=== PATIENT | female | born 1950 | race Caucasian/White ===

== ENCOUNTER 2017-12-31 09:36 | Day surgery (SDC) | payer MEDICARE, OTHER ==
[~2017-12-31 09:36] MED LIST: Lactated Ringers 1,000 ML IV SCH; Lidocaine 1%/Sod Bicarbonate in NS 8.4% 1 ML Syringe IDERM PRN; Sodium Chloride 0.9% 10 ML Syringe FLUSH PRN
--- NOTE | 2017-12-31 10:13 | PCM.PREANE ---
Preanesthetic Assessment - Procedure Proposed Procedure: Screening colonoscopy - Anesthesia/Transfusion/Family Hx Anesthesia History: Prior Anesthesia Without Reaction Family History of Anesthesia Reaction: No Transfusion History: Prior Transfusion Without Reaction (x2 with a c section) - Review of Systems General: No Symptoms Pulmonary: No Symptoms Cardiovascular: Other (cardiomyopathy, iliac stents, HTN, hx of palpitations, hyperlipidemia, PVD) Gastrointestinal: Other (Occ GERD ) Neurological: No Symptoms Other: Reports: None - Physical Assessment NPO Status Date: 12/31/17 NPO Status Time: 23:30 Pulse: 82 O2 Sat by Pulse Oximetry: 100 Respiratory Rate: 16 Blood Pressure: 171/54 Temperature: 36.8 C Height: 1.47 m Weight: 54.885 kg ASA Class: 2 Mental Status: Alert & Oriented x3 Airway Class: Mallampati = 3 Dentition: Reports: Normal Dentition (patient has prominent incisors and small mouth opening ) Thyro-Mental Finger Breadths: 3 Mouth Opening Finger Breadths: 2 ROM/Head Extension: Full Lungs: Clear to Auscultation, Normal Respiratory Effort Cardiovascular: Regular Rate, Regular Rhythm - Allergies Allergies/Adverse Reactions: Allergies Allergy/AdvReac Type Severity Reaction Status Date / Time No Known Allergies Allergy Verified 12/31/17 10:04 - Blood Blood Available: No Product(s) Available: None - Anesthesia Plan Pre-Op Medication Ordered: None - Acknowledgements Anesthesia Type Planned: MAC Pt an Appropriate Candidate for the Planned Anesthesia: Yes Alternatives and Risks of Anesthesia Discussed w Pt/Guardian: Yes Pt/Guardian Understands and Agrees with Anesthesia Plan: Yes PreAnesthesia Questionnaire - HOME MEDS Home Medications: Home Meds Aspirin [Adult Low Dose Aspirin EC] 81 mg PO DAILY 12/31/17 [History] Carvedilol [Coreg] 6.25 mg PO DAILY 12/31/17 [History] Losartan [Cozaar] 25 mg PO DAILY 12/31/17 [History] atorvaSTATin Calcium [Lipitor] 40 mg PO DAILY 12/31/17 [History] - CURRENT (IN HOUSE) MEDS Current Meds: Current Medications Lactated Ringer's (Ringers, Lactated) 1,000 mls @ 125 mls/hr IV ASDIRECTED MARIAM Stop: 12/31/17 23:00 Lidocaine/Sodium Bicarbonate (Buffered Lidocaine 1% In Ns 8.4%) 0.25 ml IDERM ONETIME PRN PRN Reason: Prior to IV Start Stop: 12/31/17 18:00 Sodium Chloride (Saline Flush) 10 ml FLUSH ASDIRECTED PRN PRN Reason: Keep Vein Open Stop: 12/31/17 18:00
[2017-12-31] MEDS ORDERED: Propofol 200 MG/20 ML SDV ONE ×2 (10:31→10:47)
[2017-12-31] MEDS ORDERED: Lidocaine 1% 2 ML ONE ×2 (10:32)
--- NOTE | 2017-12-31 11:12 | PCM48HPAN ---
Post Anesthesia Note - EVALUATION WITHIN 48HRS OF ANESTHETIC Vital Signs in Normal Range: Yes Patient Participated in Evaluation: Yes Respiratory Function Stable: Yes Airway Patent: Yes Cardiovascular Function Stable: Yes Hydration Status Stable: Yes Pain Control Satisfactory: Yes Nausea and Vomiting Control Satisfactory: Yes Mental Status Recovered: Yes Pulse Rate: 77 SaO2: 99 Resp Rate: 16 Temperature: 98.2 C Blood Pressure: 110/59
--- NOTE | 2018-01-01 07:28 | OR ---
DATE OF OPERATION: 12/31/2017 SURGEON: Enmanuel Gonzalez MD PREOPERATIVE DIAGNOSIS: 1. Screening colonoscopy. 2. Family history of colon cancer. POSTOPERATIVE DIAGNOSIS: 1. Screening colonoscopy. 2. Family history of colon cancer. OPERATION PERFORMED: Colonoscopy to cecum. ANESTHESIA: Done under IV sedation. FINDINGS: Normal study. There was some spasm in the sigmoid colon, which made the colonoscopy difficult. DESCRIPTION OF PROCEDURE: The patient was taken to the endoscopy room, placed in supine position, connected to monitoring equipment, given IV sedation, and placed in left lateral position. Perianal area was inspected and was normal. Rectal exam showed good sphincter tone. A video Olympus colonoscope was threaded up to the sigmoid colon, where a spasm resulted, but with patience and time, scope was advanced beyond this and into the cecum without problem. Prep was excellent. [place] cleansing score grade A throughout the colon. Cecum demonstrated the appendicular orifice. Appendicular orifice was photographed, and the scope was slowly withdrawn showing the cecum, ascending colon, transverse colon, descending colon, sigmoid colon, and rectum. The patient tolerated the procedure, study was normal, and recommend repeat colonoscopy in 5 years. ESTIMATED BLOOD LOSS: MMODAL /[id number]
== END 2017-12-31 11:50 | disposition home or self-care (01) ==
LOC: JD.SDS 09:36
PROVIDERS: ATTEND Surgery
DX: K59.00 Constipation, unspecified (principal); K58.9 Irritable bowel syndrome, unspecified; Z80.0 Family history of malignant neoplasm of digestive organs; I10 Essential (primary) hypertension; E66.3 Overweight; E78.5 Hyperlipidemia, unspecified; Z87.891 Personal history of nicotine dependence; Z79.01 Long term (current) use of anticoagulants; Z79.82 Long term (current) use of aspirin; Z79.899 Other long term (current) drug therapy
CPT/HCPCS: 45378; J2704; J7120; 00811; J2001

== ENCOUNTER 2022-10-26 11:17 | Day surgery (SDC) | payer MEDICARE, OTHER ==
[2022-10-26] MEDS: Polymyxin B/Trimethoprim 10 ML Bottle EYELF SCH ×4 (11:27→13:04)
[2022-10-26] MEDS ORDERED: Ondansetron 4 MG/2 ML SDV IVPUSH PRN (11:28)
[2022-10-26] MEDS: Brimonidine 0.2% Ophth Soln 5 ML Bottle EYELF SCH ×4 (11:32→13:04)
[2022-10-26] MEDS: Phenylephrine 2.5% Ophth Soln 2 ML Bot EYELF SCH ×5 (11:35→12:42)
[2022-10-26] MEDS: Tropicamide 1% Ophth Soln 15 ML Bottle EYELF SCH ×4 (11:38→12:15)
[2022-10-26] MEDS: Tetracaine HCl/PF 0.5% 4 ML Bottle EYEBOTH SCH ×5 (11:50→12:50)
[2022-10-26] MEDS: Lidocaine 1% PF 2 ML SDV INJECT SCH ×2 (11:50→12:51)
[2022-10-26] MEDS: Cefuroxime 10 MG/ML SYRINGE EYELF SCH ×2 (11:52→13:03)
[2022-10-26] MEDS: Pilocarpine 4% Ophth Soln 15 ML Bot EYELF SCH ×2 (11:53→13:04)
== END 2022-10-26 13:12 ==
LOC: JD.SDS 11:17
PROVIDERS: ATTEND Ophthalmology
DX: H25.812 Combined forms of age-related cataract, left eye (principal); H40.053 Ocular hypertension, bilateral; H16.103 Unspecified superficial keratitis, bilateral; H16.223 Keratoconjunctivitis sicca, not specified as Sjogren's, bilateral; H43.811 Vitreous degeneration, right eye; H02.834 Dermatochalasis of left upper eyelid; H02.831 Dermatochalasis of right upper eyelid; H53.8 Other visual disturbances; F41.9 Anxiety disorder, unspecified; F32.A Depression, unspecified; E78.00 Pure hypercholesterolemia, unspecified; I10 Essential (primary) hypertension; Z90.49 Acquired absence of other specified parts of digestive tract; Z90.89 Acquired absence of other organs; Z79.02 Long term (current) use of antithrombotics/antiplatelets; Z79.899 Other long term (current) drug therapy; Z96.1 Presence of intraocular lens
CPT/HCPCS: 66982; A9270; J0697; 00142; 99100; J3490

== ENCOUNTER 2023-12-11 12:42 | Inpatient (IN) | payer MEDICARE, OTHER ==
[2023-12-11 13:48] LABS: BASOPHILS PERCENT AUTO 0.4 % (0.0-1.0); EOSINOPHILS ABSOLUTE AUTO 0.3 K/mm3 (0.0-0.4); EOSINOPHILS PERCENT AUTO 3.5 % (0.0-6.0); HEMATOCRIT 30.9 % (37.0-47.0); HEMOGLOBIN 10.1 gm/dl (12.0-16.0); IMMATURE GRAN ABSOLUTE AUTO 0.01 K/mm3 (0.00-0.05); IMMATURE GRAN PERCENT AUTO 0.1 % (0.0-0.4); LYMPHOCYTES PERCENT AUTO 13.4 % (24.0-44.0); MEAN CORPUSCULAR HGB CONC 32.7 g/dl (32.0-36.0); MEAN CORPUSCULAR VOLUME 94.8 fl (83.0-99.0); MONOCYTES PERCENT AUTO 14.3 % (0.0-8.0); NEUTROPHILS ABSOLUTE AUTO 4.9 K/mm3 (1.8-7.7); NEUTROPHILS PERCENT AUTO 68.3 % (41.0-71.0); PLATELET COUNT,PLT 284 K/mm3 (150-400); RED BLOOD CELL COUNT 3.26 M/mm3 (4.10-5.30); WHITE BLOOD CELL COUNT,WBC 7.11 K/mm3 (3.9-11.3)
[2023-12-11 14:15] LABS: A/G RATIO 1.3 (1-2); ALBUMIN 3.7 g/dl (3.4-5.0); ANION GAP 13.6 (5-15); BILIRUBIN TOTAL 0.7 mg/dL (0.2-1.0); BUN/CREATININE RATIO 15.7 (14-18); CALCIUM 8.8 mg/dL (8.5-10.1); CREATININE 1.4 mg/dL (0.55-1.02); EST CRCL DRUG DOSING (CG) 24.94 mL/min; POTASSIUM,K 3.6 mEq/L (3.5-5.1); PROTEIN TOTAL,TP 6.6 g/dl (6.4-8.2)
[2023-12-11] MEDS: Sodium Chloride 0.9% 10 ML Syringe FLUSH PRN (15:30)
[2023-12-11] MEDS: Aspirin 81 MG Tab.Chew PO ONE (15:30)
[2023-12-11] MEDS: Furosemide 40 MG/4 ML VIAL IVPUSH ONE (16:09)
[2023-12-11] MEDS: Ondansetron 4 MG/2 ML SDV IVPUSH ONE (16:10)
[2023-12-11] MEDS ORDERED: Melatonin 3 MG Tab PO PRN (18:20)
[2023-12-11] MEDS ORDERED: Sennosides/Docusate Sodium 50-8.6 MG Tab PO PRN (18:20)
[2023-12-11] MEDS: Carvedilol 12.5 MG Tab PO ONE (20:25)
[2023-12-11] MEDS: busPIRone 5 MG Tab PO SCH (20:25)
[2023-12-11] MEDS: Acetaminophen 325 MG Tab PO PRN (20:37)
[2023-12-12 04:44] LABS: HEMATOCRIT 29.1 % (37.0-47.0); HEMOGLOBIN 9.4 gm/dl (12.0-16.0); MEAN CORPUSCULAR HEMOGLOBIN 31.1 pg (28.0-32.0); MEAN CORPUSCULAR HGB CONC 32.3 g/dl (32.0-36.0); MEAN CORPUSCULAR VOLUME 96.4 fl (83.0-99.0); MEAN PLATELET VOLUME 10.1 fl (9.4-12.3); PLATELET COUNT,PLT 262 K/mm3 (150-400); RED BLOOD CELL COUNT 3.02 M/mm3 (4.10-5.30); WHITE BLOOD CELL COUNT,WBC 7.84 K/mm3 (3.9-11.3)
[2023-12-12 05:10] LABS: A/G RATIO 1.2 (1-2); ALBUMIN 3.3 g/dl (3.4-5.0); ANION GAP 11.4 (5-15); BILIRUBIN TOTAL 0.6 mg/dL (0.2-1.0); BUN/CREATININE RATIO 16.9 (14-18); CALCIUM 8.4 mg/dL (8.5-10.1); CREATININE 1.3 mg/dL (0.55-1.02); EST CRCL DRUG DOSING (CG) 26.86 mL/min; MAGNESIUM 1.6 mg/dL (1.8-2.4); POTASSIUM,K 3.4 mEq/L (3.5-5.1)
[2023-12-12] MEDS: Carvedilol 6.25 MG Tab PO SCH (06:00)
[2023-12-12] MEDS: Citalopram 10 MG Tab PO SCH (08:15)
[2023-12-12] MEDS: Aspirin 81 MG Tab.EC PO SCH (08:16)
[2023-12-12] MEDS: Enoxaparin 30 MG/0.3 ML Syringe SUBCUT SCH (08:16)
[2023-12-12] MEDS: Clopidogrel 75 MG Tab PO SCH (08:16)
[2023-12-12] MEDS: Potassium Chloride 20 MEQ Tab.ER PO ONE (12:02)
[2023-12-12] MEDS: Magnesium Sulfate/Water 4 GM in Premix Bag 1 BAG IV ONE (12:02)
[2023-12-12] MEDS: Carvedilol 12.5 MG Tab PO SCH (17:12)
[2023-12-12] MEDS: atorvaSTATin 40 MG Tab PO SCH (19:13)
[2023-12-12] MEDS: Sodium Chloride 0.9% 1,000 ML ONE (21:21)
[2023-12-13 04:44] LABS: HEMATOCRIT 32.3 % (37.0-47.0); HEMOGLOBIN 10.3 gm/dl (12.0-16.0); MEAN CORPUSCULAR HGB CONC 31.9 g/dl (32.0-36.0); MEAN CORPUSCULAR VOLUME 97.3 fl (83.0-99.0); MEAN PLATELET VOLUME 10.2 fl (9.4-12.3); PLATELET COUNT,PLT 291 K/mm3 (150-400); RED BLOOD CELL COUNT 3.32 M/mm3 (4.10-5.30); WHITE BLOOD CELL COUNT,WBC 7.45 K/mm3 (3.9-11.3)
[2023-12-13 05:05] LABS: ANION GAP 13.4 (5-15); BUN/CREATININE RATIO 24.6 (14-18); CALCIUM 8.8 mg/dL (8.5-10.1); CREATININE 1.3 mg/dL (0.55-1.02); EST CRCL DRUG DOSING (CG) 26.86 mL/min; MAGNESIUM 2.9 mg/dL (1.8-2.4); POTASSIUM,K 4.4 mEq/L (3.5-5.1)
[2023-12-13] MEDS: Lisinopril 20 MG Tab PO SCH (13:35)
[2023-12-13] MEDS: Labetalol 100 MG/20 ML MDV IVPUSH PRN (16:00)
[2023-12-13] MEDS: hydrALAZINE 25 MG Tab PO SCH (16:49)
[2023-12-13 17:11] LABS: BILIRUBIN,URINE NEGATIVE (Negative); COLOR,URINE YELLOW (Yellow); GLUCOSE,URINE NEGATIVE (Negative); KETONES,URINE 1+ (Negative); LEUKOCYTE ESTERASE,URINE TRACE (Negative); NITRITE,URINE POSITIVE (Negative); OCCULT BLOOD,URINE NEGATIVE (Negative); PROTEIN,URINE 1+ (Negative)
[2023-12-13 17:29] LABS: APPEARANCE,URINE SLT CLOUDY (Clear); RBC,URINE 0-5 /hpf (0-5)
[2023-12-13 17:30] LABS: BACTERIA,URINE MANY /hpf (FEW); MUCUS,URINE FEW /hpf (FEW); TRIPLE PHOSPHATE CRYSTALS,UR FEW /hpf
[2023-12-13] MEDS: cefTRIAXone 1 GM in Sodium Chloride 0.9% 100 ML IV SCH (20:48)
[2023-12-14 05:49] LABS: ANION GAP 15.5 (5-15); CALCIUM 8.7 mg/dL (8.5-10.1); CREATININE 1.9 mg/dL (0.55-1.02); EST CRCL DRUG DOSING (CG) 18.38 mL/min; POTASSIUM,K 4.5 mEq/L (3.5-5.1)
[2023-12-14] MEDS: Spironolactone 25 MG Tab PO SCH (11:34)
[2023-12-14 13:54] LABS: ANION GAP 10.6 (5-15); BUN/CREATININE RATIO 23.1 (14-18); CALCIUM 8.7 mg/dL (8.5-10.1); CREATININE 1.6 mg/dL (0.55-1.02); EST CRCL DRUG DOSING (CG) 21.82 mL/min; POTASSIUM,K 4.6 mEq/L (3.5-5.1)
[2023-12-14] MEDS: hydrALAZINE 20 MG/ML SDV IVPUSH PRN (17:20)
[2023-12-15 06:05] LABS: ANION GAP 15.6 (5-15); BUN/CREATININE RATIO 19.1 (14-18); CALCIUM 8.8 mg/dL (8.5-10.1); CREATININE 2.2 mg/dL (0.55-1.02); EST CRCL DRUG DOSING (CG) 15.87 mL/min; POTASSIUM,K 4.6 mEq/L (3.5-5.1)
[2023-12-15] MEDS: amLODIPine 5 MG Tab PO SCH (08:52)
[2023-12-15] MEDS: hydrALAZINE 25 MG Tab PO SCH (14:53)
[2023-12-16 06:08] LABS: ANION GAP 15.6 (5-15); BUN/CREATININE RATIO 20.4 (14-18); CALCIUM 8.7 mg/dL (8.5-10.1); CREATININE 2.3 mg/dL (0.55-1.02); EST CRCL DRUG DOSING (CG) 15.18 mL/min; POTASSIUM,K 4.6 mEq/L (3.5-5.1)
[2023-12-16 13:57] LABS: ANION GAP 16.2 (5-15); BUN/CREATININE RATIO 20.4 (14-18); CALCIUM 8.9 mg/dL (8.5-10.1); CREATININE 2.4 mg/dL (0.55-1.02); EST CRCL DRUG DOSING (CG) 14.55 mL/min; POTASSIUM,K 4.2 mEq/L (3.5-5.1)
[2023-12-16] MEDS: Lactated Ringers 500 ML IV ONE ×2 (20:58)
[2023-12-17 05:59] LABS: ANION GAP 16.4 (5-15); BUN/CREATININE RATIO 19.3 (14-18); CALCIUM 8.8 mg/dL (8.5-10.1); CREATININE 2.7 mg/dL (0.55-1.02); EST CRCL DRUG DOSING (CG) 12.93 mL/min; POTASSIUM,K 4.4 mEq/L (3.5-5.1)
== END 2023-12-17 17:30 | disposition home or self-care (01) | DRG 305 ==
LOC: JD.ED 12:42 → JD.MS 18:05
PROVIDERS: ADMIT Student in an Organized Health Care Education/Training Program; ATTEND Student in an Organized Health Care Education/Training Program
DX: I16.1 Hypertensive emergency (principal); N17.9 Acute kidney failure, unspecified; N39.0 Urinary tract infection, site not specified; I1A.0 Resistant hypertension; I50.9 Heart failure, unspecified; R74.8 Abnormal levels of other serum enzymes; E83.42 Hypomagnesemia; E87.6 Hypokalemia; N18.32 Chronic kidney disease, stage 3b; I12.9 Hypertensive chronic kidney disease with stage 1 through stage 4 chronic kidney disease, or unspecified chronic kidney disease; I25.10 Atherosclerotic heart disease of native coronary artery without angina pectoris; I70.1 Atherosclerosis of renal artery; B96.20 Unspecified Escherichia coli [E. coli] as the cause of diseases classified elsewhere; B96.89 Other specified bacterial agents as the cause of diseases classified elsewhere; Z95.5 Presence of coronary angioplasty implant and graft; Z88.5 Allergy status to narcotic agent; Z79.02 Long term (current) use of antithrombotics/antiplatelets; Z79.82 Long term (current) use of aspirin; Z79.899 Other long term (current) drug therapy
CPT/HCPCS: 36415; 71046; 80053; 83880; 84484 ×2; 85025; 93005 ×2; 96374; 96375; 99285; A9270; J1940; J2405; J3490; 76775; 76775-26; 80048; 81001; 83735; 84100; 85027; 87086; 87088; 87186; 93010; 93976; 93976-26; 94761; J0360; J0696; J1650; J1921; J3475; J7120

== ENCOUNTER 2023-12-31 08:53 | Inpatient (IN) | payer MEDICARE, OTHER ==
[2023-12-31 09:54] LABS: BASOPHILS PERCENT AUTO 0.3 % (0.0-1.0); EOSINOPHILS PERCENT AUTO 0.4 % (0.0-6.0); HEMATOCRIT 28.9 % (37.0-47.0); HEMOGLOBIN 9.2 gm/dl (12.0-16.0); IMMATURE GRAN ABSOLUTE AUTO 0.08 K/mm3 (0.00-0.05); IMMATURE GRAN PERCENT AUTO 0.8 % (0.0-0.4); LYMPHOCYTES ABSOLUTE AUTO 0.2 K/mm3 (1.0-4.8); MEAN CORPUSCULAR HEMOGLOBIN 30.4 pg (28.0-32.0); MEAN CORPUSCULAR HGB CONC 31.8 g/dl (32.0-36.0); MEAN CORPUSCULAR VOLUME 95.4 fl (83.0-99.0); MEAN PLATELET VOLUME 9.9 fl (9.4-12.3); MONOCYTES ABSOLUTE AUTO 0.8 K/mm3 (0.0-0.8); MONOCYTES PERCENT AUTO 8.6 % (0.0-8.0); NEUTROPHILS ABSOLUTE AUTO 8.3 K/mm3 (1.8-7.7); NEUTROPHILS PERCENT AUTO 87.9 % (41.0-71.0); PLATELET COUNT,PLT 291 K/mm3 (150-400); RED BLOOD CELL COUNT 3.03 M/mm3 (4.10-5.30); WHITE BLOOD CELL COUNT,WBC 9.46 K/mm3 (3.9-11.3)
[2023-12-31 10:28] LABS: A/G RATIO 1.2 (1-2); ALBUMIN 4.1 g/dl (3.4-5.0); ANION GAP 15.7 (5-15); BILIRUBIN TOTAL 0.9 mg/dL (0.2-1.0); CREATININE 1.4 mg/dL (0.55-1.02); EST CRCL DRUG DOSING (CG) 24.94 mL/min; POTASSIUM,K 3.7 mEq/L (3.5-5.1); PROTEIN TOTAL,TP 7.4 g/dl (6.4-8.2)
[2023-12-31 11:14] LABS: LACTIC ACID 0.5 mmol/L (0.4-2.0)
[2023-12-31] MEDS: cefTRIAXone 2 GM in Sodium Chloride 0.9% 100 ML IV ONE (11:20)
[2023-12-31] MEDS: Sodium Chloride 0.9% 10 ML Syringe FLUSH PRN (11:21)
[2023-12-31 11:57] LABS: CORONAVIRUS COVID-19 NAA NEGATIVE (NEGATIVE); INFLUENZA A NAA NEGATIVE (NEGATIVE); RESPIRATORY SYNCYTIAL VIR NAA NEGATIVE (NEGATIVE)
[2023-12-31] MEDS ORDERED: Acetaminophen 325 MG Tab PO PRN (13:13)
[2023-12-31] MEDS: Doxycycline 100 MG in Sodium Chloride 0.9% 100 ML IV SCH (14:43)
[2023-12-31 15:40] LABS: BICARBONATE,ARTERIAL 20.6 meq/L (22.0-26.0); O2 SATURATION ARTERIAL 96.6 % (96.0-97.0); PCO2 ARTERIAL 48.7 mmHg (35.0-45.0)
[2023-12-31] MEDS ORDERED: Sodium Chloride 0.9% 1,000 ML IV SCH (15:45)
[2023-12-31] MEDS: Sodium Chloride 0.9% 10 ML Syringe FLUSH ONE (16:00)
[2023-12-31] MEDS: Iopamidol 755 Mg/ML 100 ML Bottle IVPUSH ONE (16:00)
[2023-12-31] MEDS: Sodium Chloride 0.9% 100 ML IV SCH (16:01)
[2023-12-31] MEDS: Albuterol/Ipratropium 3.0-0.5 MG/3 ML Neb Soln NEB ONE (16:24)
[2023-12-31] MEDS: Enoxaparin 30 MG/0.3 ML Syringe SUBCUT SCH (17:06)
[2023-12-31] MEDS: atorvaSTATin 40 MG Tab PO SCH (17:44)
[2023-12-31] MEDS: Aspirin 81 MG Tab.EC PO SCH (17:44)
[2023-12-31] MEDS: Clopidogrel 75 MG Tab PO SCH (17:44)
[2023-12-31] MEDS: Furosemide 20 MG Tab PO SCH (17:44)
[2023-12-31] MEDS: Piperacillin/Tazobactam 4.5 GM in Sodium Chloride 0.9% 100 ML IV ONE (20:37)
[2023-12-31] MEDS: hydrALAZINE 25 MG Tab PO SCH (20:37)
[2023-12-31] MEDS: Carvedilol 12.5 MG Tab PO SCH (20:38)
[2023-12-31] MEDS: busPIRone 5 MG Tab PO SCH (20:38)
[2024-01-01] MEDS: Piperacillin/Tazobactam 4.5 GM in Sodium Chloride 0.9% 100 ML IV SCH (00:26)
[2024-01-01 05:10] LABS: BASOPHILS PERCENT AUTO 0.4 % (0.0-1.0); EOSINOPHILS ABSOLUTE AUTO 0.1 K/mm3 (0.0-0.4); EOSINOPHILS PERCENT AUTO 0.6 % (0.0-6.0); HEMATOCRIT 26.8 % (37.0-47.0); HEMOGLOBIN 8.4 gm/dl (12.0-16.0); IMMATURE GRAN ABSOLUTE AUTO 0.07 K/mm3 (0.00-0.05); IMMATURE GRAN PERCENT AUTO 0.7 % (0.0-0.4); LYMPHOCYTES ABSOLUTE AUTO 0.2 K/mm3 (1.0-4.8); LYMPHOCYTES PERCENT AUTO 2.2 % (24.0-44.0); MEAN CORPUSCULAR HEMOGLOBIN 30.3 pg (28.0-32.0); MEAN CORPUSCULAR HGB CONC 31.3 g/dl (32.0-36.0); MEAN CORPUSCULAR VOLUME 96.8 fl (83.0-99.0); MEAN PLATELET VOLUME 10.3 fl (9.4-12.3); MONOCYTES ABSOLUTE AUTO 1.5 K/mm3 (0.0-0.8); MONOCYTES PERCENT AUTO 14.8 % (0.0-8.0); NEUTROPHILS ABSOLUTE AUTO 8.1 K/mm3 (1.8-7.7); NEUTROPHILS PERCENT AUTO 81.3 % (41.0-71.0); PLATELET COUNT,PLT 248 K/mm3 (150-400); RED BLOOD CELL COUNT 2.77 M/mm3 (4.10-5.30); WHITE BLOOD CELL COUNT,WBC 9.93 K/mm3 (3.9-11.3)
[2024-01-01 06:12] LABS: A/G RATIO 1.1 (1-2); ALBUMIN 3.5 g/dl (3.4-5.0); ANION GAP 18.5 (5-15); BILIRUBIN TOTAL 0.8 mg/dL (0.2-1.0); BUN/CREATININE RATIO 25.6 (14-18); C-REACTIVE PROTEIN 6.44 mg/dL (<0.30); CALCIUM 8.7 mg/dL (8.5-10.1); CREATININE 1.6 mg/dL (0.55-1.02); EST CRCL DRUG DOSING (CG) 21.82 mL/min; POTASSIUM,K 3.5 mEq/L (3.5-5.1); PROTEIN TOTAL,TP 6.6 g/dl (6.4-8.2)
[2024-01-01] MEDS: Citalopram 10 MG Tab PO SCH (08:23)
[2024-01-01] MEDS: amLODIPine 5 MG Tab PO SCH (08:24)
[2024-01-01] MEDS: Ondansetron 4 MG Tab.DIS PO PRN (16:39)
[2024-01-02 05:25] LABS: ALBUMIN 3.2 g/dl (3.4-5.0); ANION GAP 19.2 (5-15); BILIRUBIN TOTAL 0.8 mg/dL (0.2-1.0); BUN/CREATININE RATIO 21.2 (14-18); C-REACTIVE PROTEIN 8.81 mg/dL (<0.30); CALCIUM 8.4 mg/dL (8.5-10.1); CREATININE 2.5 mg/dL (0.55-1.02); EST CRCL DRUG DOSING (CG) 13.97 mL/min; POTASSIUM,K 3.2 mEq/L (3.5-5.1); PROTEIN TOTAL,TP 6.4 g/dl (6.4-8.2)
[2024-01-02 05:31] LABS: BASOPHILS PERCENT AUTO 0.2 % (0.0-1.0); EOSINOPHILS ABSOLUTE AUTO 0.1 K/mm3 (0.0-0.4); EOSINOPHILS PERCENT AUTO 1.3 % (0.0-6.0); HEMATOCRIT 26.3 % (37.0-47.0); HEMOGLOBIN 8.5 gm/dl (12.0-16.0); IMMATURE GRAN ABSOLUTE AUTO 0.07 K/mm3 (0.00-0.05); IMMATURE GRAN PERCENT AUTO 0.7 % (0.0-0.4); LYMPHOCYTES ABSOLUTE AUTO 0.3 K/mm3 (1.0-4.8); LYMPHOCYTES PERCENT AUTO 3.4 % (24.0-44.0); MEAN CORPUSCULAR HEMOGLOBIN 30.7 pg (28.0-32.0); MEAN CORPUSCULAR HGB CONC 32.3 g/dl (32.0-36.0); MEAN CORPUSCULAR VOLUME 94.9 fl (83.0-99.0); MEAN PLATELET VOLUME 10.6 fl (9.4-12.3); MONOCYTES ABSOLUTE AUTO 1.4 K/mm3 (0.0-0.8); MONOCYTES PERCENT AUTO 13.5 % (0.0-8.0); NEUTROPHILS ABSOLUTE AUTO 8.1 K/mm3 (1.8-7.7); NEUTROPHILS PERCENT AUTO 80.9 % (41.0-71.0); PLATELET COUNT,PLT 244 K/mm3 (150-400); RED BLOOD CELL COUNT 2.77 M/mm3 (4.10-5.30); WHITE BLOOD CELL COUNT,WBC 9.99 K/mm3 (3.9-11.3)
[2024-01-02] MEDS: Potassium Chloride 20 MEQ Tab.ER PO ONE (09:21)
[2024-01-02] MEDS: Sodium Chloride 0.9% 500 ML IV ONE (11:09)
[2024-01-02] MEDS: Sodium Chloride 0.9% 1,000 ML IV SCH (12:40)
[2024-01-02] MEDS: Loperamide 2 MG Cap PO ONE (21:45)
[2024-01-02] MEDS: Piperacillin/Tazobactam 4.5 GM in Sodium Chloride 0.9% 100 ML IV SCH (21:45)
[2024-01-03 08:44] LABS: HEMATOCRIT 27.7 % (37.0-47.0); HEMOGLOBIN 8.8 gm/dl (12.0-16.0); MEAN CORPUSCULAR HEMOGLOBIN 30.3 pg (28.0-32.0); MEAN CORPUSCULAR HGB CONC 31.8 g/dl (32.0-36.0); MEAN CORPUSCULAR VOLUME 95.5 fl (83.0-99.0); MEAN PLATELET VOLUME 10.4 fl (9.4-12.3); PLATELET COUNT,PLT 255 K/mm3 (150-400); WHITE BLOOD CELL COUNT,WBC 10.71 K/mm3 (3.9-11.3)
[2024-01-03 08:50] LABS: A/G RATIO 0.9 (1-2); ALBUMIN 3.1 g/dl (3.4-5.0); ANION GAP 21.6 (5-15); BILIRUBIN TOTAL 0.6 mg/dL (0.2-1.0); C-REACTIVE PROTEIN 6.84 mg/dL (<0.30); CALCIUM 7.8 mg/dL (8.5-10.1); EST CRCL DRUG DOSING (CG) 8.73 mL/min; POTASSIUM,K 3.6 mEq/L (3.5-5.1); PROTEIN TOTAL,TP 6.6 g/dl (6.4-8.2)
[2024-01-03] MEDS: amLODIPine 10 MG Tab PO SCH (08:51)
[2024-01-03] MEDS ORDERED: Sodium Chloride 0.9% 1,000 ML IV SCH (10:00)
[2024-01-03] MEDS: Sodium Chloride 0.9% 1,000 ML IV ONE (10:33)
[2024-01-03] MEDS: Saccharomyces Boulardii (Probiotic) 250 MG Cap PO SCH (12:50)
== END 2024-01-03 13:36 | DRG 193 ==
LOC: JD.ED 08:53 → JD.MS 12:43
PROVIDERS: ADMIT Family Medicine; ATTEND Family Medicine
DX: J18.9 Pneumonia, unspecified organism (principal); I11.0 Hypertensive heart disease with heart failure; J96.01 Acute respiratory failure with hypoxia; N17.0 Acute kidney failure with tubular necrosis; I13.0 Hypertensive heart and chronic kidney disease with heart failure and stage 1 through stage 4 chronic kidney disease, or unspecified chronic kidney disease; Z66 Do not resuscitate; E87.5 Hyperkalemia; D64.9 Anemia, unspecified; J69.0 Pneumonitis due to inhalation of food and vomit; I50.9 Heart failure, unspecified; I25.10 Atherosclerotic heart disease of native coronary artery without angina pectoris; F41.9 Anxiety disorder, unspecified; F32.A Depression, unspecified; N18.32 Chronic kidney disease, stage 3b; I70.1 Atherosclerosis of renal artery; M81.0 Age-related osteoporosis without current pathological fracture; I1A.0 Resistant hypertension; Z88.5 Allergy status to narcotic agent; Z95.5 Presence of coronary angioplasty implant and graft; Z98.49 Cataract extraction status, unspecified eye; Z79.02 Long term (current) use of antithrombotics/antiplatelets; Z79.82 Long term (current) use of aspirin; Z90.710 Acquired absence of both cervix and uterus; Z79.899 Other long term (current) drug therapy; Z87.891 Personal history of nicotine dependence
CPT/HCPCS: 0241U; 36415; 36600; 71045; 71045-26; 71275; 71275-26; 80053; 82803; 83605; 83735; 83880; 84484; 85025; 85027; 86140; 87040; 87070; 87205; 87493; 87899; 92610-GN; 93005; 93010; 94640; 94760; 94761; 94762; 96365; 97110-GP; 97161-GP; 97530-GP; 99223; 99232; 99239; 99285; 99285-25; A9270-GY; J0696; J1650; J2543; J3490; J7030; J7040; J7620-GY; Q9967

== ENCOUNTER 2024-02-25 09:31 | Emergency (ER) | payer MEDICARE, OTHER ==
[2024-02-25] MEDS: Sodium Chloride 0.9% 10 ML Syringe FLUSH PRN (10:08)
[2024-02-25 10:25] LABS: BASOPHILS PERCENT AUTO 0.2 % (0.0-1.0); EOSINOPHILS ABSOLUTE AUTO 0.1 K/mm3 (0.0-0.4); EOSINOPHILS PERCENT AUTO 0.8 % (0.0-6.0); HEMATOCRIT 37.3 % (37.0-47.0); HEMOGLOBIN 11.6 gm/dl (12.0-16.0); IMMATURE GRAN ABSOLUTE AUTO 0.03 K/mm3 (0.00-0.05); IMMATURE GRAN PERCENT AUTO 0.3 % (0.0-0.4); LYMPHOCYTES ABSOLUTE AUTO 0.6 K/mm3 (1.0-4.8); LYMPHOCYTES PERCENT AUTO 5.2 % (24.0-44.0); MEAN CORPUSCULAR HEMOGLOBIN 30.4 pg (28.0-32.0); MEAN CORPUSCULAR HGB CONC 31.1 g/dl (32.0-36.0); MEAN CORPUSCULAR VOLUME 97.6 fl (83.0-99.0); MEAN PLATELET VOLUME 10.4 fl (9.4-12.3); MONOCYTES ABSOLUTE AUTO 1.5 K/mm3 (0.0-0.8); MONOCYTES PERCENT AUTO 13.8 % (0.0-8.0); NEUTROPHILS ABSOLUTE AUTO 8.4 K/mm3 (1.8-7.7); NEUTROPHILS PERCENT AUTO 79.7 % (41.0-71.0); PLATELET COUNT,PLT 228 K/mm3 (150-400); RED BLOOD CELL COUNT 3.82 M/mm3 (4.10-5.30)
[2024-02-25 11:01] LABS: A/G RATIO 1.1 (1-2); ALBUMIN 3.7 g/dl (3.4-5.0); ANION GAP 15.2 (5-15); BILIRUBIN TOTAL 1.1 mg/dL (0.2-1.0); CALCIUM 9.3 mg/dL (8.5-10.1); EST CRCL DRUG DOSING (CG) 34.91 mL/min; POTASSIUM,K 4.2 mEq/L (3.5-5.1); PROTEIN TOTAL,TP 7.2 g/dl (6.4-8.2)
[2024-02-25 11:25] LABS: CORONAVIRUS COVID-19 NAA NEGATIVE (NEGATIVE); INFLUENZA A NAA NEGATIVE (NEGATIVE); RESPIRATORY SYNCYTIAL VIR NAA NEGATIVE (NEGATIVE)
[2024-02-25] MEDS: Furosemide 40 MG/4 ML VIAL IVPUSH ONE (12:11)
== END 2024-02-25 13:25 | disposition home or self-care (01) ==
LOC: JD.ED 09:31
DX: J96.01 Acute respiratory failure with hypoxia (principal); J11.1 Influenza due to unidentified influenza virus with other respiratory manifestations; E87.70 Fluid overload, unspecified; I11.0 Hypertensive heart disease with heart failure; I50.9 Heart failure, unspecified; Z88.5 Allergy status to narcotic agent; Z88.8 Allergy status to other drugs, medicaments and biological substances; Z79.82 Long term (current) use of aspirin; Z79.899 Other long term (current) drug therapy; Z79.02 Long term (current) use of antithrombotics/antiplatelets; Z95.5 Presence of coronary angioplasty implant and graft
CPT/HCPCS: 0241U; 36415; 71045; 80053; 83605; 83880; 85025; 87040; 93005; 96374; 99284; J1940; J3490

== ENCOUNTER 2024-05-02 14:55 | Inpatient (IN) | payer MEDICARE, OTHER ==
[2024-05-02] MEDS: Albuterol/Ipratropium 3.0-0.5 MG/3 ML Neb Soln NEB ONE (15:42)
[2024-05-02 15:43] LABS: BASOPHILS PERCENT AUTO 0.3 % (0.0-1.0); EOSINOPHILS ABSOLUTE AUTO 0.2 K/mm3 (0.0-0.4); EOSINOPHILS PERCENT AUTO 1.7 % (0.0-6.0); HEMATOCRIT 35.5 % (37.0-47.0); HEMOGLOBIN 11.5 gm/dl (12.0-16.0); IMMATURE GRAN ABSOLUTE AUTO 0.03 K/mm3 (0.00-0.05); IMMATURE GRAN PERCENT AUTO 0.3 % (0.0-0.4); LYMPHOCYTES ABSOLUTE AUTO 0.4 K/mm3 (1.0-4.8); MEAN CORPUSCULAR HEMOGLOBIN 28.9 pg (28.0-32.0); MEAN CORPUSCULAR HGB CONC 32.4 g/dl (32.0-36.0); MEAN CORPUSCULAR VOLUME 89.2 fl (83.0-99.0); MEAN PLATELET VOLUME 10.1 fl (9.4-12.3); MONOCYTES ABSOLUTE AUTO 0.8 K/mm3 (0.0-0.8); MONOCYTES PERCENT AUTO 8.5 % (0.0-8.0); NEUTROPHILS ABSOLUTE AUTO 7.4 K/mm3 (1.8-7.7); NEUTROPHILS PERCENT AUTO 84.2 % (41.0-71.0); PLATELET COUNT,PLT 297 K/mm3 (150-400); RED BLOOD CELL COUNT 3.98 M/mm3 (4.10-5.30); WHITE BLOOD CELL COUNT,WBC 8.82 K/mm3 (3.9-11.3)
[2024-05-02] MEDS: Furosemide 40 MG/4 ML VIAL IVPUSH ONE ×2 (15:53→17:09)
[2024-05-02 16:14] LABS: BASE EXCESS ARTERIAL -2.4 (-2-2.0); BICARBONATE,ARTERIAL 22.2 meq/L (22.0-26.0); O2 SATURATION ARTERIAL 88.3 % (96.0-97.0); PCO2 ARTERIAL 39.8 mmHg (35.0-45.0)
[2024-05-02 16:16] LABS: LACTIC ACID 1.1 mmol/L (0.4-2.0)
[2024-05-02 16:17] LABS: A/G RATIO 1.2 (1-2); ALBUMIN 4.4 g/dl (3.4-5.0); ANION GAP 15.8 (5-15); BILIRUBIN TOTAL 0.7 mg/dL (0.2-1.0); BUN/CREATININE RATIO 22.9 (14-18); C-REACTIVE PROTEIN 0.69 mg/dL (<0.30); CALCIUM 9.4 mg/dL (8.5-10.1); CREATININE 1.4 mg/dL (0.55-1.02); EST CRCL DRUG DOSING (CG) 24.94 mL/min; MAGNESIUM 2.2 mg/dL (1.8-2.4); POTASSIUM,K 3.8 mEq/L (3.5-5.1); PROTEIN TOTAL,TP 8.2 g/dl (6.4-8.2)
[2024-05-02 17:28] LABS: APPEARANCE,URINE CLEAR (Clear); BILIRUBIN,URINE NEGATIVE (Negative); COLOR,URINE YELLOW (Yellow); GLUCOSE,URINE NEGATIVE (Negative); KETONES,URINE NEGATIVE (Negative); LEUKOCYTE ESTERASE,URINE TRACE (Negative); NITRITE,URINE POSITIVE (Negative); OCCULT BLOOD,URINE NEGATIVE (Negative); PROTEIN,URINE NEGATIVE (Negative); UROBILINOGEN,URINE 0.2 (0.2-1.0)
[2024-05-02 17:52] LABS: BACTERIA,URINE MANY /hpf (FEW); MUCUS,URINE FEW /hpf (FEW); RBC,URINE 0-5 /hpf (0-5); SQUAMOUS EPITHELIAL CELLS,UR 0-5 /hpf (0-5)
[2024-05-02] MEDS ORDERED: Sennosides/Docusate Sodium 50-8.6 MG Tab PO PRN (18:02)
[2024-05-02] MEDS ORDERED: oxyCODONE 5 MG Tab PO PRN (18:02)
[2024-05-02] MEDS ORDERED: Naloxone 0.4 MG/ML SDV IVPUSH PRN (18:02)
[2024-05-02] MEDS ORDERED: Ondansetron 4 MG/2 ML SDV IV PRN (18:02)
[2024-05-02] MEDS ORDERED: Morphine 2 MG/ML SYRINGE IVPUSH PRN (18:02)
[2024-05-02] MEDS ORDERED: Melatonin 3 MG Tab PO PRN (18:02)
[2024-05-02] MEDS ORDERED: hydrALAZINE 20 MG/ML SDV IVPUSH PRN (18:12)
[2024-05-02] MEDS ORDERED: Labetalol 100 MG/20 ML MDV IVPUSH PRN (18:12)
[2024-05-02] MEDS: Potassium Chloride 20 MEQ Tab.ER PO ONE (19:58)
[2024-05-02] MEDS: Acetaminophen 325 MG Tab PO PRN (19:59)
[2024-05-02] MEDS: busPIRone 5 MG Tab PO SCH (20:00)
[2024-05-02] MEDS: cefTRIAXone 1 GM in Sodium Chloride 0.9% 50 ML IV SCH (20:01)
[2024-05-03 05:43] LABS: BASOPHILS PERCENT AUTO 0.3 % (0.0-1.0); EOSINOPHILS ABSOLUTE AUTO 0.1 K/mm3 (0.0-0.4); HEMOGLOBIN 10.3 gm/dl (12.0-16.0); IMMATURE GRAN ABSOLUTE AUTO 0.02 K/mm3 (0.00-0.05); IMMATURE GRAN PERCENT AUTO 0.3 % (0.0-0.4); LYMPHOCYTES ABSOLUTE AUTO 0.5 K/mm3 (1.0-4.8); LYMPHOCYTES PERCENT AUTO 7.7 % (24.0-44.0); MEAN CORPUSCULAR HEMOGLOBIN 29.3 pg (28.0-32.0); MEAN CORPUSCULAR HGB CONC 33.2 g/dl (32.0-36.0); MEAN CORPUSCULAR VOLUME 88.3 fl (83.0-99.0); MONOCYTES PERCENT AUTO 14.1 % (0.0-8.0); NEUTROPHILS ABSOLUTE AUTO 5.2 K/mm3 (1.8-7.7); NEUTROPHILS PERCENT AUTO 75.6 % (41.0-71.0); PLATELET COUNT,PLT 270 K/mm3 (150-400); RED BLOOD CELL COUNT 3.51 M/mm3 (4.10-5.30); WHITE BLOOD CELL COUNT,WBC 6.86 K/mm3 (3.9-11.3)
[2024-05-03 05:45] LABS: A/G RATIO 1.1 (1-2); ALBUMIN 3.7 g/dl (3.4-5.0); ANION GAP 15.4 (5-15); BILIRUBIN TOTAL 0.6 mg/dL (0.2-1.0); C-REACTIVE PROTEIN 0.77 mg/dL (<0.30); CALCIUM 8.7 mg/dL (8.5-10.1); CREATININE 1.2 mg/dL (0.55-1.02); EST CRCL DRUG DOSING (CG) 29.1 mL/min; MAGNESIUM 2.1 mg/dL (1.8-2.4); PHOSPHORUS 2.9 mg/dL (2.6-4.7); POTASSIUM,K 4.4 mEq/L (3.5-5.1)
[2024-05-03] MEDS: atorvaSTATin 40 MG Tab PO SCH (10:00)
[2024-05-03] MEDS: Clopidogrel 75 MG Tab PO SCH (10:00)
[2024-05-03] MEDS: Aspirin 81 MG Tab.EC PO SCH (10:00)
[2024-05-03] MEDS: Citalopram 10 MG Tab PO SCH (10:00)
[2024-05-03] MEDS: Furosemide 40 MG/4 ML VIAL IVPUSH ONE (10:00)
[2024-05-03] MEDS: Enoxaparin 30 MG/0.3 ML Syringe SUBCUT SCH (10:00)
[2024-05-03] MEDS: cefTRIAXone 1 GM Vial IV SCH (20:52)
[2024-05-04 05:35] LABS: ANION GAP 14.9 (5-15); BUN/CREATININE RATIO 23.1 (14-18); CALCIUM 9.1 mg/dL (8.5-10.1); CREATININE 1.3 mg/dL (0.55-1.02); EST CRCL DRUG DOSING (CG) 26.86 mL/min; PHOSPHORUS 3.3 mg/dL (2.6-4.7); POTASSIUM,K 3.9 mEq/L (3.5-5.1)
[2024-05-04] MEDS: Furosemide 100 MG/10 ML SDV IVPUSH ONE (09:08)
== END 2024-05-04 14:30 | disposition home or self-care (01) | DRG 291 ==
LOC: JD.ED 14:55 → JD.ICU 17:40
PROVIDERS: ADMIT Student in an Organized Health Care Education/Training Program; ATTEND Student in an Organized Health Care Education/Training Program
PROC: 4A033R1 Measurement of Arterial Saturation, Peripheral, Percutaneous Approach (ICD-10-PCS; principal; 2024-05-02)
PROC: 5A0935A Assistance with Respiratory Ventilation, Less than 24 Consecutive Hours, High Flow/Velocity Cannula (ICD-10-PCS; 2024-05-02)
DX: I13.0 Hypertensive heart and chronic kidney disease with heart failure and stage 1 through stage 4 chronic kidney disease, or unspecified chronic kidney disease (principal); I50.33 Acute on chronic diastolic (congestive) heart failure; I50.43 Acute on chronic combined systolic (congestive) and diastolic (congestive) heart failure; J96.01 Acute respiratory failure with hypoxia; J98.11 Atelectasis; N39.0 Urinary tract infection, site not specified; Z66 Do not resuscitate; J44.9 Chronic obstructive pulmonary disease, unspecified; M81.0 Age-related osteoporosis without current pathological fracture; M06.9 Rheumatoid arthritis, unspecified; F41.9 Anxiety disorder, unspecified; F32.A Depression, unspecified; N18.32 Chronic kidney disease, stage 3b; I25.10 Atherosclerotic heart disease of native coronary artery without angina pectoris; I70.1 Atherosclerosis of renal artery; Z99.81 Dependence on supplemental oxygen; Z87.891 Personal history of nicotine dependence; I25.2 Old myocardial infarction; Z97.8 Presence of other specified devices; Z88.5 Allergy status to narcotic agent; Z88.8 Allergy status to other drugs, medicaments and biological substances; Z79.02 Long term (current) use of antithrombotics/antiplatelets; Z79.899 Other long term (current) drug therapy; Z79.82 Long term (current) use of aspirin; Z95.5 Presence of coronary angioplasty implant and graft; Z87.01 Personal history of pneumonia (recurrent); Z87.81 Personal history of (healed) traumatic fracture; Z90.49 Acquired absence of other specified parts of digestive tract; Z98.49 Cataract extraction status, unspecified eye; Z90.710 Acquired absence of both cervix and uterus; Z98.890 Other specified postprocedural states
CPT/HCPCS: 36415; 36600; 71045; 71045-26; 71046; 71046-26; 80048; 80053; 81001; 82803; 83605; 83735; 83880; 84100; 84484; 85025; 85379; 86140; 87086; 87428-QW; 93005; 94640; 94761; 96374; 96376; 99285-25; A9270-GY; J0696; J1650; J1940; J3490; J7620-GY

== ENCOUNTER 2024-07-23 06:51 | Inpatient (IN) | payer MEDICARE, OTHER ==
[2024-07-23 07:27] LABS: BASOPHILS PERCENT AUTO 0.3 % (0.0-1.0); EOSINOPHILS ABSOLUTE AUTO 0.3 K/mm3 (0.0-0.4); EOSINOPHILS PERCENT AUTO 2.6 % (0.0-6.0); HEMATOCRIT 30.3 % (37.0-47.0); HEMOGLOBIN 9.8 gm/dl (12.0-16.0); IMMATURE GRAN ABSOLUTE AUTO 0.06 K/mm3 (0.00-0.05); IMMATURE GRAN PERCENT AUTO 0.6 % (0.0-0.4); LYMPHOCYTES ABSOLUTE AUTO 0.5 K/mm3 (1.0-4.8); LYMPHOCYTES PERCENT AUTO 5.1 % (24.0-44.0); MEAN CORPUSCULAR HEMOGLOBIN 30.5 pg (28.0-32.0); MEAN CORPUSCULAR HGB CONC 32.3 g/dl (32.0-36.0); MEAN PLATELET VOLUME 9.5 fl (9.4-12.3); MONOCYTES ABSOLUTE AUTO 0.9 K/mm3 (0.0-0.8); NEUTROPHILS PERCENT AUTO 82.4 % (41.0-71.0); PLATELET COUNT,PLT 329 K/mm3 (150-400); RED BLOOD CELL COUNT 3.21 M/mm3 (4.10-5.30)
[2024-07-23 07:28] LABS: MEAN CORPUSCULAR VOLUME 94.4 fl (83.0-99.0)
[2024-07-23] MEDS: fentaNYL 100 MCG/2 ML SDV IVPUSH ONE (07:40)
[2024-07-23] MEDS: Lactated Ringers 1,000 ML IV ONE (07:41)
[2024-07-23 07:56] LABS: A/G RATIO 1.1 (1-2); ALBUMIN 4.1 g/dl (3.4-5.0); ANION GAP 17.6 (5-15); BILIRUBIN TOTAL 0.6 mg/dL (0.2-1.0); BUN/CREATININE RATIO 23.5 (14-18); CREATININE 1.7 mg/dL (0.55-1.02); EST CRCL DRUG DOSING (CG) 23.65 mL/min; MAGNESIUM 2.3 mg/dL (1.8-2.4); POTASSIUM,K 4.6 mEq/L (3.5-5.1)
[2024-07-23] MEDS: Furosemide 40 MG/4 ML VIAL IVPUSH ONE (08:19)
[2024-07-23] MEDS: Naloxone 0.4 MG/ML SDV IVPUSH ONE ×2 (08:37→08:55)
[2024-07-23 09:20] LABS: APPEARANCE,URINE CLEAR (Clear); BILIRUBIN,URINE NEGATIVE (Negative); COLOR,URINE YELLOW (Yellow); GLUCOSE,URINE NEGATIVE (Negative); KETONES,URINE NEGATIVE (Negative); LEUKOCYTE ESTERASE,URINE NEGATIVE (Negative); NITRITE,URINE POSITIVE (Negative); OCCULT BLOOD,URINE NEGATIVE (Negative); PROTEIN,URINE TRACE (Negative); UROBILINOGEN,URINE 0.2 (0.2-1.0)
[2024-07-23 09:29] LABS: AMORPHOUS SEDIMENT,URINE MANY /hpf (NOT SEEN); BACTERIA,URINE MANY /hpf (FEW); MUCUS,URINE FEW /hpf (FEW); RBC,URINE 0-5 /hpf (0-5); SQUAMOUS EPITHELIAL CELLS,UR 0-5 /hpf (0-5)
[2024-07-23] MEDS ORDERED: cefTRIAXone 500 MG Vial IVPUSH ONE (09:36)
[2024-07-23] MEDS: cefTRIAXone 1 GM Vial IVPUSH ONE (09:49)
[2024-07-23 10:28] LABS: BICARBONATE,ARTERIAL 22.6 meq/L (22.0-26.0); O2 SATURATION ARTERIAL 85.6 % (96.0-97.0)
[2024-07-23] MEDS ORDERED: Acetaminophen 325 MG Tab PO PRN (12:55)
[2024-07-23] MEDS ORDERED: Carvedilol 6.25 MG Tab PO SCH (17:30)
[2024-07-23] MEDS: Clopidogrel 75 MG Tab PO SCH (17:44)
[2024-07-23] MEDS: Spironolactone 25 MG Tab PO SCH (17:44)
[2024-07-23] MEDS: Aspirin 81 MG Tab.EC PO SCH (17:44)
[2024-07-23] MEDS: Carvedilol 12.5 MG Tab PO SCH (17:46)
[2024-07-23] MEDS: amLODIPine 5 MG Tab PO SCH (17:46)
[2024-07-23 19:49] LABS: BASE EXCESS ARTERIAL -1.6 (-2-2.0); BICARBONATE,ARTERIAL 19.6 meq/L (22.0-26.0)
[2024-07-23] MEDS: atorvaSTATin 40 MG Tab PO SCH (20:17)
[2024-07-23] MEDS: Heparin Sodium 5,000 Units/ML Vial SUBCUT SCH (20:17)
[2024-07-23] MEDS: busPIRone 5 MG Tab PO SCH (20:17)
[2024-07-24 04:46] LABS: BASOPHILS PERCENT AUTO 0.5 % (0.0-1.0); EOSINOPHILS ABSOLUTE AUTO 0.2 K/mm3 (0.0-0.4); EOSINOPHILS PERCENT AUTO 2.2 % (0.0-6.0); HEMATOCRIT 26.9 % (37.0-47.0); HEMOGLOBIN 8.9 gm/dl (12.0-16.0); IMMATURE GRAN ABSOLUTE AUTO 0.05 K/mm3 (0.00-0.05); IMMATURE GRAN PERCENT AUTO 0.6 % (0.0-0.4); LYMPHOCYTES ABSOLUTE AUTO 0.6 K/mm3 (1.0-4.8); MEAN CORPUSCULAR HEMOGLOBIN 30.9 pg (28.0-32.0); MEAN CORPUSCULAR HGB CONC 33.1 g/dl (32.0-36.0); MEAN CORPUSCULAR VOLUME 93.4 fl (83.0-99.0); MEAN PLATELET VOLUME 9.5 fl (9.4-12.3); MONOCYTES PERCENT AUTO 11.9 % (0.0-8.0); NEUTROPHILS ABSOLUTE AUTO 6.4 K/mm3 (1.8-7.7); NEUTROPHILS PERCENT AUTO 77.8 % (41.0-71.0); PLATELET COUNT,PLT 279 K/mm3 (150-400); RED BLOOD CELL COUNT 2.88 M/mm3 (4.10-5.30); WHITE BLOOD CELL COUNT,WBC 8.23 K/mm3 (3.9-11.3)
[2024-07-24 05:04] LABS: ANION GAP 15.2 (5-15); CALCIUM 8.9 mg/dL (8.5-10.1); CREATININE 1.5 mg/dL (0.55-1.02); EST CRCL DRUG DOSING (CG) 23.28 mL/min; POTASSIUM,K 4.2 mEq/L (3.5-5.1)
[2024-07-24] MEDS: Furosemide 40 MG/4 ML VIAL IVPUSH ONE (08:37)
[2024-07-24] MEDS ORDERED: Aspirin 81 MG Tab.EC PO SCH (09:00)
[2024-07-24] MEDS ORDERED: Clopidogrel 75 MG Tab PO SCH (09:00)
[2024-07-24] MEDS ORDERED: atorvaSTATin 40 MG Tab PO SCH (09:00)
[2024-07-24] MEDS: cefTRIAXone 1 GM Vial IVPUSH SCH (09:03)
[2024-07-24 10:09] LABS: PH,VENOUS 7.46 (7.30-7.40)
[2024-07-24 10:10] LABS: BASE EXCESS VENOUS 1.2 (-4.0-2.0); BICARBONATE,VENOUS 24.9 meq/L (22-26); O2 SATURATION VENOUS 74.6
[2024-07-25 04:36] LABS: BASOPHILS PERCENT AUTO 0.2 % (0.0-1.0); EOSINOPHILS ABSOLUTE AUTO 0.8 K/mm3 (0.0-0.4); EOSINOPHILS PERCENT AUTO 8.3 % (0.0-6.0); HEMATOCRIT 27.3 % (37.0-47.0); HEMOGLOBIN 8.9 gm/dl (12.0-16.0); IMMATURE GRAN ABSOLUTE AUTO 0.04 K/mm3 (0.00-0.05); IMMATURE GRAN PERCENT AUTO 0.4 % (0.0-0.4); LYMPHOCYTES ABSOLUTE AUTO 0.5 K/mm3 (1.0-4.8); LYMPHOCYTES PERCENT AUTO 5.2 % (24.0-44.0); MEAN CORPUSCULAR HEMOGLOBIN 30.3 pg (28.0-32.0); MEAN CORPUSCULAR HGB CONC 32.6 g/dl (32.0-36.0); MEAN CORPUSCULAR VOLUME 92.9 fl (83.0-99.0); MEAN PLATELET VOLUME 9.4 fl (9.4-12.3); MONOCYTES ABSOLUTE AUTO 1.1 K/mm3 (0.0-0.8); MONOCYTES PERCENT AUTO 11.7 % (0.0-8.0); NEUTROPHILS PERCENT AUTO 74.2 % (41.0-71.0); PLATELET COUNT,PLT 290 K/mm3 (150-400); RED BLOOD CELL COUNT 2.94 M/mm3 (4.10-5.30); WHITE BLOOD CELL COUNT,WBC 9.48 K/mm3 (3.9-11.3)
[2024-07-25 04:54] LABS: ANION GAP 12.9 (5-15); BUN/CREATININE RATIO 22.5 (14-18); CALCIUM 9.2 mg/dL (8.5-10.1); CREATININE 1.6 mg/dL (0.55-1.02); EST CRCL DRUG DOSING (CG) 21.82 mL/min; POTASSIUM,K 3.9 mEq/L (3.5-5.1)
[2024-07-25] MEDS: amLODIPine 10 MG Tab PO SCH (08:50)
[2024-07-25] MEDS: Sacubitril/Valsartan 1 EACH Tablet PO SCH (11:19)
== END 2024-07-25 13:45 | disposition home or self-care (01) | DRG 291 ==
LOC: JD.ED 06:51 → JD.MS 12:40
PROVIDERS: ADMIT Family Medicine; ATTEND Student in an Organized Health Care Education/Training Program
PROC: 4A133R1 Monitoring of Arterial Saturation, Peripheral, Percutaneous Approach (ICD-10-PCS; principal; 2024-07-23)
PROC: 5A09357 Assistance with Respiratory Ventilation, Less than 24 Consecutive Hours, Continuous Positive Airway Pressure (ICD-10-PCS; 2024-07-23)
DX: I13.0 Hypertensive heart and chronic kidney disease with heart failure and stage 1 through stage 4 chronic kidney disease, or unspecified chronic kidney disease (principal); J96.01 Acute respiratory failure with hypoxia; J96.02 Acute respiratory failure with hypercapnia; N39.0 Urinary tract infection, site not specified; N17.9 Acute kidney failure, unspecified; N18.9 Chronic kidney disease, unspecified; M81.0 Age-related osteoporosis without current pathological fracture; M06.9 Rheumatoid arthritis, unspecified; F41.9 Anxiety disorder, unspecified; F32.A Depression, unspecified; I50.9 Heart failure, unspecified; Z66 Do not resuscitate; I25.10 Atherosclerotic heart disease of native coronary artery without angina pectoris; E78.00 Pure hypercholesterolemia, unspecified; I70.1 Atherosclerosis of renal artery; Z88.5 Allergy status to narcotic agent; Z88.8 Allergy status to other drugs, medicaments and biological substances; Z79.02 Long term (current) use of antithrombotics/antiplatelets; Z79.82 Long term (current) use of aspirin; Z79.899 Other long term (current) drug therapy; Z95.5 Presence of coronary angioplasty implant and graft; Z98.84 Bariatric surgery status; Z90.49 Acquired absence of other specified parts of digestive tract; Z90.710 Acquired absence of both cervix and uterus; Z87.891 Personal history of nicotine dependence
CPT/HCPCS: 36415; 36600; 71045; 71045-26; 71046; 71046-26; 80048; 80053; 81001; 82550; 82803; 83690; 83735; 83880; 84484; 85025; 87086; 87428-QW; 93005; 93306; 94660; 94761; 96361; 96374; 96375; 99285-25; A9270-GY; J0696; J1644; J1940; J2310; J3010; J7120

== ENCOUNTER 2024-08-21 06:47 | Inpatient (IN) | payer MEDICARE, OTHER ==
[2024-08-21] MEDS: Furosemide 40 MG/4 ML VIAL IVPUSH ONE (07:21)
[2024-08-21 07:31] LABS: BICARBONATE,ARTERIAL 24.8 meq/L (22.0-26.0); O2 SATURATION ARTERIAL 95.6 % (96.0-97.0)
[2024-08-21 07:33] LABS: BASOPHILS PERCENT AUTO 0.3 % (0.0-1.0); EOSINOPHILS ABSOLUTE AUTO 0.2 K/mm3 (0.0-0.4); EOSINOPHILS PERCENT AUTO 1.3 % (0.0-6.0); HEMATOCRIT 29.9 % (37.0-47.0); HEMOGLOBIN 9.7 gm/dl (12.0-16.0); IMMATURE GRAN ABSOLUTE AUTO 0.07 K/mm3 (0.00-0.05); IMMATURE GRAN PERCENT AUTO 0.5 % (0.0-0.4); LYMPHOCYTES ABSOLUTE AUTO 0.3 K/mm3 (1.0-4.8); LYMPHOCYTES PERCENT AUTO 2.2 % (24.0-44.0); MEAN CORPUSCULAR HEMOGLOBIN 30.6 pg (28.0-32.0); MEAN CORPUSCULAR HGB CONC 32.4 g/dl (32.0-36.0); MEAN CORPUSCULAR VOLUME 94.3 fl (83.0-99.0); MEAN PLATELET VOLUME 9.6 fl (9.4-12.3); MONOCYTES ABSOLUTE AUTO 1.4 K/mm3 (0.0-0.8); MONOCYTES PERCENT AUTO 9.5 % (0.0-8.0); NEUTROPHILS ABSOLUTE AUTO 12.3 K/mm3 (1.8-7.7); NEUTROPHILS PERCENT AUTO 86.2 % (41.0-71.0); PLATELET COUNT,PLT 267 K/mm3 (150-400); RED BLOOD CELL COUNT 3.17 M/mm3 (4.10-5.30)
[2024-08-21 07:52] LABS: INR 0.97; PROTHROMBIN TIME 10.3 SECONDS (9.7-12.0)
[2024-08-21 08:05] LABS: ALBUMIN 3.9 g/dl (3.4-5.0); ANION GAP 14.8 (5-15); BILIRUBIN TOTAL 0.7 mg/dL (0.2-1.0); CALCIUM 9.7 mg/dL (8.5-10.1); CREATININE 2.2 mg/dL (0.55-1.02); EST CRCL DRUG DOSING (CG) 15.63 mL/min; MAGNESIUM 2.4 mg/dL (1.8-2.4); POTASSIUM,K 3.8 mEq/L (3.5-5.1); PROTEIN TOTAL,TP 7.8 g/dl (6.4-8.2)
[2024-08-21] MEDS: Acetaminophen 325 MG Tab PO PRN (11:23)
[2024-08-21] MEDS: atorvaSTATin 40 MG Tab PO SCH (11:23)
[2024-08-21] MEDS: Aspirin 81 MG Tab.EC PO SCH (11:24)
[2024-08-21] MEDS: Isosorbide Mononitrate 30 MG Tab.ER PO SCH (11:24)
[2024-08-21] MEDS: hydrALAZINE 25 MG Tab PO SCH (11:24)
[2024-08-21] MEDS: Clopidogrel 75 MG Tab PO SCH (11:24)
[2024-08-21] MEDS: Heparin Sodium 5,000 Units/ML Vial SUBCUT SCH (15:38)
[2024-08-21] MEDS: Carvedilol 12.5 MG Tab PO SCH (17:06)
[2024-08-21 18:03] LABS: APPEARANCE,URINE CLEAR (Clear); BILIRUBIN,URINE NEGATIVE (Negative); COLOR,URINE YELLOW (Yellow); GLUCOSE,URINE NEGATIVE (Negative); KETONES,URINE NEGATIVE (Negative); LEUKOCYTE ESTERASE,URINE NEGATIVE (Negative); NITRITE,URINE NEGATIVE (Negative); OCCULT BLOOD,URINE NEGATIVE (Negative); PH,URINE 6.5 (5.0-8.0); PROTEIN,URINE NEGATIVE (Negative); UROBILINOGEN,URINE 0.2 (0.2-1.0)
[2024-08-21] MEDS: busPIRone 5 MG Tab PO SCH (20:19)
[2024-08-22 05:44] LABS: BASOPHILS PERCENT AUTO 0.3 % (0.0-1.0); EOSINOPHILS ABSOLUTE AUTO 0.1 K/mm3 (0.0-0.4); EOSINOPHILS PERCENT AUTO 1.4 % (0.0-6.0); HEMATOCRIT 26.6 % (37.0-47.0); HEMOGLOBIN 8.6 gm/dl (12.0-16.0); IMMATURE GRAN ABSOLUTE AUTO 0.04 K/mm3 (0.00-0.05); IMMATURE GRAN PERCENT AUTO 0.4 % (0.0-0.4); LYMPHOCYTES ABSOLUTE AUTO 0.3 K/mm3 (1.0-4.8); LYMPHOCYTES PERCENT AUTO 2.8 % (24.0-44.0); MEAN CORPUSCULAR HGB CONC 32.3 g/dl (32.0-36.0); MEAN CORPUSCULAR VOLUME 92.7 fl (83.0-99.0); MONOCYTES ABSOLUTE AUTO 1.2 K/mm3 (0.0-0.8); MONOCYTES PERCENT AUTO 11.2 % (0.0-8.0); NEUTROPHILS ABSOLUTE AUTO 8.6 K/mm3 (1.8-7.7); NEUTROPHILS PERCENT AUTO 83.9 % (41.0-71.0); PLATELET COUNT,PLT 268 K/mm3 (150-400); RED BLOOD CELL COUNT 2.87 M/mm3 (4.10-5.30); WHITE BLOOD CELL COUNT,WBC 10.29 K/mm3 (3.9-11.3)
[2024-08-22] MEDS: Spironolactone 25 MG Tab PO SCH (08:00)
[2024-08-22 08:40] LABS: ALBUMIN 3.6 g/dl (3.4-5.0); ANION GAP 17.7 (5-15); BILIRUBIN TOTAL 0.8 mg/dL (0.2-1.0); BUN/CREATININE RATIO 27.8 (14-18); CALCIUM 9.4 mg/dL (8.5-10.1); CREATININE 1.8 mg/dL (0.55-1.02); EST CRCL DRUG DOSING (CG) 19.1 mL/min; POTASSIUM,K 3.7 mEq/L (3.5-5.1); PROTEIN TOTAL,TP 7.2 g/dl (6.4-8.2)
[2024-08-22] MEDS ORDERED: Non-Formulary Medication 1 Each (Atorvastatin Calcium [Atorvastatin Calcium] 80 MG Tablet) PO SCH (09:00)
[2024-08-22] MEDS: Furosemide 80 MG Tab PO SCH (13:04)
[2024-08-22] MEDS: amLODIPine 10 MG Tab PO SCH (13:04)
[2024-08-23 05:34] LABS: BASOPHILS PERCENT AUTO 0.3 % (0.0-1.0); EOSINOPHILS ABSOLUTE AUTO 0.3 K/mm3 (0.0-0.4); EOSINOPHILS PERCENT AUTO 2.8 % (0.0-6.0); HEMATOCRIT 28.8 % (37.0-47.0); HEMOGLOBIN 9.4 gm/dl (12.0-16.0); IMMATURE GRAN ABSOLUTE AUTO 0.05 K/mm3 (0.00-0.05); IMMATURE GRAN PERCENT AUTO 0.6 % (0.0-0.4); LYMPHOCYTES ABSOLUTE AUTO 0.4 K/mm3 (1.0-4.8); LYMPHOCYTES PERCENT AUTO 4.4 % (24.0-44.0); MEAN CORPUSCULAR HEMOGLOBIN 30.1 pg (28.0-32.0); MEAN CORPUSCULAR HGB CONC 32.6 g/dl (32.0-36.0); MEAN CORPUSCULAR VOLUME 92.3 fl (83.0-99.0); MEAN PLATELET VOLUME 9.7 fl (9.4-12.3); MONOCYTES ABSOLUTE AUTO 1.1 K/mm3 (0.0-0.8); MONOCYTES PERCENT AUTO 12.6 % (0.0-8.0); NEUTROPHILS PERCENT AUTO 79.3 % (41.0-71.0); PLATELET COUNT,PLT 293 K/mm3 (150-400); RED BLOOD CELL COUNT 3.12 M/mm3 (4.10-5.30); WHITE BLOOD CELL COUNT,WBC 8.81 K/mm3 (3.9-11.3)
[2024-08-23 05:56] LABS: ANION GAP 15.9 (5-15); BUN/CREATININE RATIO 28.3 (14-18); CALCIUM 10.1 mg/dL (8.5-10.1); CREATININE 1.8 mg/dL (0.55-1.02); EST CRCL DRUG DOSING (CG) 19.1 mL/min; POTASSIUM,K 3.9 mEq/L (3.5-5.1)
== END 2024-08-23 10:42 | disposition home or self-care (01) | DRG 291 ==
LOC: JD.ED 06:47 → JD.MS 09:09
PROVIDERS: ADMIT Family Medicine; ATTEND Family Medicine
PROC: 4A033R1 Measurement of Arterial Saturation, Peripheral, Percutaneous Approach (ICD-10-PCS; principal; 2024-08-21)
DX: I13.0 Hypertensive heart and chronic kidney disease with heart failure and stage 1 through stage 4 chronic kidney disease, or unspecified chronic kidney disease (principal); I50.43 Acute on chronic combined systolic (congestive) and diastolic (congestive) heart failure; J96.21 Acute and chronic respiratory failure with hypoxia; N17.9 Acute kidney failure, unspecified; N18.4 Chronic kidney disease, stage 4 (severe); D63.1 Anemia in chronic kidney disease; Z66 Do not resuscitate; I25.10 Atherosclerotic heart disease of native coronary artery without angina pectoris; M81.0 Age-related osteoporosis without current pathological fracture; E78.5 Hyperlipidemia, unspecified; F41.9 Anxiety disorder, unspecified; J96.01 Acute respiratory failure with hypoxia; I44.7 Left bundle-branch block, unspecified; I49.3 Ventricular premature depolarization; M06.9 Rheumatoid arthritis, unspecified; F32.A Depression, unspecified; I70.1 Atherosclerosis of renal artery; Z98.49 Cataract extraction status, unspecified eye; I50.33 Acute on chronic diastolic (congestive) heart failure; N18.9 Chronic kidney disease, unspecified; Z98.890 Other specified postprocedural states; Z90.710 Acquired absence of both cervix and uterus; Z90.49 Acquired absence of other specified parts of digestive tract; Z79.82 Long term (current) use of aspirin; Z88.6 Allergy status to analgesic agent; Z88.5 Allergy status to narcotic agent; Z79.899 Other long term (current) drug therapy; Z88.8 Allergy status to other drugs, medicaments and biological substances; Z95.828 Presence of other vascular implants and grafts; Z79.02 Long term (current) use of antithrombotics/antiplatelets; Z87.01 Personal history of pneumonia (recurrent); Z87.440 Personal history of urinary (tract) infections; Z98.891 History of uterine scar from previous surgery; Z95.5 Presence of coronary angioplasty implant and graft
CPT/HCPCS: 36415; 36600; 71045; 80053; 82803; 83735; 83880; 84484; 85025; 85610; 93005; 96374; 99285; J1940; 80048; 81003; 93010; 94760; 94761; 97110-GP; 97116-GP; 97161-GP; 97530-GP; A9270-GY; J1644